=== PATIENT | male | born 1990 | race African-American/Black ===

== ENCOUNTER 2018-04-21 19:48 | Emergency (ER) | payer OTHER ==
[~2018-04-21] VITALS: Ht 175.3 cm; Wt 81.6 kg
[2018-04-21 20:28] LABS: ABSOLUTE BASOPHIL COUNT 0 /CUMM (0.0-0.2); ABSOLUTE EOSINOPHIL COUNT 0.2 /CUMM (0.0-0.7); ABSOLUTE GRANULOCYTE CT 7.9 /CUMM (1.4-6.5); ABSOLUTE LYMPH COUNT 2.1 /CUMM (1.2-3.4); ABSOLUTE MONOCYTE COUNT 0.5 /CUMM (0.10-0.60); BASOPHIL % 0 % (0.0-2.0); EOSINOPHIL % 1.8 % (0-5); GRANULOCYTE % 73.8 % (42.2-75.2); HEMATOCRIT 37.1 % (42-52); MEAN CORPUSCULAR HGB 24.6 PG (27.0-31.0); MEAN CORPUSCULAR HGB CONC 33.7 G/DL (33.0-37.0); MEAN PLATELET VOLUME 9.2 FL (7.4-10.4); PLATELET COUNT 232 /CUMM (130-400); RBC DISTRIBUTION WIDTH 15.4 % (11.5-14.5); RED BLOOD CELL CT 5.08 /CUMM (4.70-6.10); WHITE BLOOD CELL COUNT 10.7 /CUMM (4.8-10.8)
[2018-04-21 21:56] VITALS: BP 139/77
--- NOTE | 2018-04-21 22:09 | RADIOLOGY REPORT ---
EXAMINATION: XR CHEST CLINICAL INFORMATION: Chest pain COMPARISON: 02/27/2017 TECHNIQUE: 2 views of the chest were obtained. FINDINGS: The cardiomediastinal silhouette and pulmonary vascularity are normal. The lungs are clear. No pleural effusion or pneumothorax. The visualized bones are within normal limits. IMPRESSION: No acute cardiopulmonary findings.
--- NOTE | 2018-04-21 22:37 | ED GENERAL ADULT ---
History of Present Illness General Chief Complaint: Chest Pain Stated Complaint: SENT BY URGENT CARE FOR CP Source: patient Exam Limitations: no limitations Vital Signs & Intake/Output Vital Signs & Intake/Output Vital Signs Date Time Temp Pulse Resp B/P B/P Pulse O2 O2 Flow FiO2 Mean Ox Delivery Rate 04/21 2156 97.9 72 16 139/77 98 Room Air 04/21 1958 97.8 67 18 157/79 97 Room Air Allergies Coded Allergies: No Known Allergies (04/06/16) Reconcile Medications No Known Home Medications Triage Note: PT SENT IN BY URGENT CARE FOR EVAL OF CP 1 HR AGO WHILE DRIVING ASSOCIATED WITH SHARP BACK PAIN AT THE SAME TIME RADIATING TO HIS NECK. PT STATES PAIN HAS SINCE SUBSIDED. DENIES CARDIAC HX, DENIES SOB, DIZZINESS. Triage Nurses Notes Reviewed? yes HPI: This is an otherwise healthy 27-year-old male presenting emergency department with a 10 minute episode of chest pain which started while patient was driving his car. He states that the pain was sharp, radiating to his left neck. The pain resolved without intervention after about 10 minutes. It is not associated with any shortness of breath, nausea, diaphoresis. There were no obvious exacerbating or alleviating factors. The pain is described as moderate in intensity. Upon arrival to the emergency department, patient has no acute complaints is well-appearing. He denies any recent travel trauma or other illness. He has no history of blood clot and states that he has no family history of early cardiac disease. He did not suffer loss of conscious noted he feel lightheaded during this episode. He does report that he had a mild sensation of palpitations and he feels that he may have been more anxious than usual for the past few days. (Gen Buck MD) Past History Travel History Traveled to [place] past 21 day No Medical History Any Pertinent Medical History? 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 No (Gen Buck MD) Review of Systems Review of Systems Constitutional: Reports: no symptoms. EENTM: Reports: no symptoms. Respiratory: Reports: no symptoms. Cardiovascular: Reports: see HPI, chest pain, palpitations. GI: Reports: no symptoms. Genitourinary: Reports: no symptoms. Musculoskeletal: Reports: no symptoms. Skin: Reports: no symptoms. Neurological/Psychological: Reports: no symptoms. Hematologic/Endocrine: Reports: no symptoms. (Gen Buck MD) Physical Exam Physical Exam General Appearance: well developed/nourished, no apparent distress, alert, awake , comfortable Head: atraumatic, normal appearance Eyes: Bilateral: normal appearance. Ears, Nose, Throat: normal pharynx, normal ENT inspection, hearing grossly normal Neck: normal inspection, supple, full range of motion Respiratory: normal breath sounds, chest non-tender, no respiratory distress, lungs clear Cardiovascular: regular rate/rhythm, normal peripheral pulses Gastrointestinal: soft, non-tender Back: normal inspection, normal range of motion Extremities: normal inspection, normal capillary refill, normal range of motion, no edema Neurologic/Psych: no motor/sensory deficits, awake, alert, oriented x 3, normal gait, normal mood/affect Skin: intact, normal color, warm/dry Comments: Well-appearing young male, no acute distress, benign cardiopulmonary/abdominal/ neurologic exam. Core Measures ACS in differential dx? Yes CVA/TIA Diagnosis: No Sepsis Present: No Sepsis Focused Exam Completed? No (Gen Buck MD) Progress Differential Diagnoses I considered the following diagnoses in my evaluation of the patient: Muscular skeletal pain, anxiety, some suspicion for arrhythmia, mild concern for ACS, very low suspicion for pulmonary embolism, thoracic aortic disease. Of note, patient is PERC negative, suggesting that the risks of further workup for pulmonary embolism outweigh the potential benefits. Plan of Care: Orders Procedure Date/time Status EKG 04/21 2341 Active TROPONIN LEVEL 04/21 2236 Complete TROPONIN LEVEL 04/21 2009 Complete COMPREHENSIVE METABOLIC PANEL 04/21 2009 Complete CBC WITHOUT DIFFERENTIAL 04/21 2009 Complete EKG 04/21 1949 Active Laboratory Tests 04/21/18 2245: Troponin I 0.02 04/21/18 2016: Anion Gap 9, Estimated GFR > 60, BUN/Creatinine Ratio 18.2, Glucose 89, Calcium 9.3, Total Bilirubin 0.5, AST 22, ALT 31, Alkaline Phosphatase 37, Troponin I < 0.01, Total Protein 6.9, Albumin 4.1, Globulin 2.8, Albumin/Globulin Ratio 1.5, CBC w Diff NO MAN DIFF REQ, RBC 5.08, MCV 73.0 L, MCH 24.6 L, MCHC 33.7, RDW 15.4 H, MPV 9.2, Gran % 73.8, Lymphocytes % 19.3 L, Monocytes % 5.1, Eosinophils % 1.8, Basophils % 0, Absolute Granulocytes 7.9 H, Absolute Lymphocytes 2.1, Absolute Monocytes 0.5, Absolute Eosinophils 0.2, Absolute Basophils 0 In this otherwise healthy 27-year-old male who reports a mild sense of anxiety recently, we will perform troponin 2, EKG, basic labs, chest film, plan for reassessment and likely discharge home with outpatient provider follow-up. Troponin negative, EKG nonischemic, chest x-ray and nonacute, patient well- appearing on reassessment. Labs do reveal a mild microcytic anemia. This is brought to the patient's attention and he is advised to follow-up with his outpatient provider for this new diagnosis. Could be related to family hx of SS trait. 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 Repeat EKG and troponin pending due to presentation of chest pain. (Viviane HUNTER,[place]) Departure Departure Time of Disposition: 2330 Disposition: HOME OR SELF CARE Condition: Stable Clinical Impression Primary Impression: Chest pain at rest Referrals: Francis Null DO (PCP/Family) Additional Instructions: Thank you for coming to [facility] today. As we discussed, we did not identify the cause of your chest pain, however it appears that there is no process going on at this time. As we discussed, since we cannot rule out every possible cause of chest pain, I strongly recommend you follow-up with your primary doctor on Monday. Please return to the emergency department if your symptoms recur, or if you develop any new or worsening symptoms such as shortness of breath, vomiting, heavy sweats. It is notable that you have a mild "microcytic anemia", which is not uncommon but should be followed up by your doctor. Departure Forms: Customer Survey General Discharge Information Prescriptions: Current Visit Scripts No Known Home Medications (Gen Buck MD) Critical Care Note Critical Care Note Critical Care Time: non-applicable (Gen Buck MD) ED Attending Observation Initial Observation Note: I have seen and personally examined BRENNA FINN on 04/21/18 at 2259. I agree with the current emergency department documentation. The disposition (admission or discharge) is uncertain at this time, he needs a period of observation for the following reason(s): The ED Nurse caring for this patient has been personally informed as to what the patient is being observed for. (Gen Buck MD)
== END 2018-04-22 00:10 ==
LOC: ERH 19:48
PROVIDERS: Emergency Medicine
DX: R07.9 Chest pain, unspecified (principal)
CPT/HCPCS: 71046; 93005; 93010